=== PATIENT | male | born 1985 | race Caucasian/White ===

== ENCOUNTER 2024-10-27 07:32 | Emergency (ER) | payer OTHER, SELFPAY ==
--- OUTSIDE RECORDS SUMMARY | 2024-10-27 08:26 | XMS_ITS | Clinical Summary ---
Author Organization [facility] Address [address] [place] [address] Care Team Providers Care Produce Manager Name Role Phone Tate Roth MD Primary Care Provider Allergies No known active allergies Medications ARIPiprazole (ABILIFY) 2 mg tablet Take 2 Tablets by mouth every morning (before breakfast). 03/16/2024 Active multivitamin (MULTIPLE VITAMINS ORAL) Take by mouth 1 (one) time each day. Active Active Problems Problem Noted Date Diagnosed Date Bipolar disorder 01/22/2018 ETOH abuse 09/13/2015 Major depressive disorder, recurrent episode, mi ld 09/13/2015 Opiate abuse, episodic 09/13/2015 Cocaine abuse 02/03/2015 Tattoo of skin 05/16/2014 Major depression in remission 01/03/2014 Immunizations Name Administration Dates Next Due Influenza trivalent, 0.5mL, preservative free (Fluarix; FluLaval; Fluzone) ages 6mo and older (Afluria) 3 years and older 07/12/2016,08/26/2013 Tdap Tetanus diptheria acell ular pertussis (Boostrix; Adacel) 7yo and older 05/16/2014 Surgical History Surgery Date Site/Laterality Comments OTHER SURGICAL HISTORY PROCEDURE: DENIES PREVIOUS SURGERY Medical History Medical History Date Comments Tobacco abuse 05/24/2013 DX:Tobacco abuse Major depression in remissio n ([facility]) 01/03/2014 DX:Major depression in remis astrid ([facility]) Tattoo of skin 05/16/2014 DX:Tattoo of ski n Cocaine abuse ([facility]/H[facility]) 02/03/2015 DX:Cocai ne abuse (HCC) Encounter for monitoring Sub oxone maintenance therapy 09/13/2015 DX:Encounter for monitoring Suboxone maintenance therapy Major depressive disorder, r ecurrent episode, mild (CMS/HCC) 09/13/2015 DX:Major depressive disorder , recurrent episode, mild (HCC) ETOH abuse 09/13/2015 DX:ETOH abuse Opiate abuse, episodic (CMS/HCC) 09/13/2015 DX:Opiate abuse, episodic (HCC) Family History Medical History Relation Name Comments Other: adopted Father Diabetes Maternal Grandfather Other: healthy Mother Other: 12 sister Sister Relation Name Status Comments Father Alive healthy Maternal Grandfather Mother Alive healthy Sister Alive Social History Tobacco Use Types Packs/Day Years Used Date Smoking Tobacco: Every Day Cigarettes 0.7 15.7 Started: 09/08/1997; Last attempted to quit: 06/07/2013 Smokeless Tobacco: Never Alcohol Use Standard Drinks/Week Comments Yes 0 (1 standard drink = 0.6 oz pur e alcohol) Sex and Gender Information Value Date Recorded Sex Assigned at Not on file Legal Sex Male 7:45 PM EDT Gender Identity Not on file Sexual Orientation Not on file Obstetrics History Last Filed Vital Signs Vital Sign Reading Time Taken Comments Blood Pressure 118/78 03/26/2024 9:54 AM EDT Pulse 84 03/26/2024 9:54 AM EDT Temperature - - Respiratory Rate - - Oxygen Saturation - - Inhaled Oxygen Concentration - - Weight 99.3 kg (219 lb) 03/26/2024 9:54 AM EDT Height 185.9 cm (6' 1.2 ) 03/26/2024 9:54 AM EDT Body Mass Index 28.74 03/26/2024 9:54 AM EDT Plan of Treatment Upcoming Encounters Date Type Department Care Team (Late st Contact Info) Description 12/30/2024 11:00 AM EDT Office Visit Adult Medicine [facility] [address] [place] [address] Tate Roth MD [address] [place] [address] Health Maintenance Due Date Last Done Comments Hepatitis A Vaccines (1 of 2 - Risk 2-dose series) 2004 Hepatitis B Vaccines (1 of 3 - 19+ 3-dose series) 2004 Pneumococcal Vaccine: Pediatrics (0 to 5 Years) and At-Risk Patients (6 to 64 Years) (1 of 2 - PCV) 2004 Depression Screening 02/26/2020 Social Influencers of Health Screening 02/26/2020 COVID-19 Vaccine (3 - 2023-2 5 season) 2024 01/20/2021, 12/30/2020 Influenza Vaccine (#1) 2024 6, 08/26/2013 DTaP,Tdap,and Td Vaccines (2 - Td or Tdap) 05/16/2024 05/16/2014 Cholesterol Screening (Lipid Panel) 03/26/2029 03/26/2024, 03/26/2024 HIV Screening Completed 07/06/2014 Hepatitis C Screening Completed 07/06/2014 HIB Vaccines Aged Out No longer eligi ble based on patient's age to complete this topic HPV Vaccines Aged Out No longer eligi ble based on patient's age to complete this topic IPV Vaccines Aged Out No longer eligi ble based on patient's age to complete this topic MMR Vaccines Aged Out No longer eligi ble based on patient's age to complete this topic Meningococcal ACWY Vaccine Aged Out N o longer eligible based on patient's age to complete this topic Meningococcal B Vacine Aged Out No lo nger eligible based on patient's age to complete this topic RSV Immunization Patients Under 20 months Aged Out No longer eligible b ased on patient's age to complete this topic Varicella Vaccines Aged Out No longer eligible based on patient's age to complete this topic Procedures Procedure Name Priority Date/Time Associated Diagnosis Comments LIPID PANEL Routine 03/26/2024 HEPATITIS C SCREENING Routine 07/06/2014 HIV SCREENING Routine 07/06/2014 from Last 3 Months or Most Recently Relevant to Health Maintenance Results * (ABNORMAL) Lipid panel (03/26/2024) LDL/HDL Ratio 4 0 - 4 Triglycerides 195(A) 0 - 150 mg/dL Cholesterol 212(A) 0 - 200 mg/dL HDL 53 >=40 mg/dL LDL Cholesterol 120(A) 0 - 100 mg/dL Blood Venous blood specimen / Unknown Historical Provider LAB BLOOD ORDERABLES Ruby l Result * HIV Screening (07/06/2014) HIV Screening abstracted Historical Provider HEALTH MAINTENANCE Final Result * Hepatitis C Screening (07/06/2014) Hepatitis C Screening abstracted Historical Provider HEALTH MAINTENANCE Final Result from Last 3 Months or Most Recently Relevant to Health Maintenance Care Teams Produce Manager Relationship Specialty Start Date End Date Tate Roth MD [address] [place] [address] PCP - General 03/23/24
== END 2024-10-27 08:33 | disposition left against medical advice (07) ==
LOC: HO.ED 08:23
PROVIDERS: Emergency Provider Emergency Medicine
DX: H57.11 Ocular pain, right eye (principal)

== ENCOUNTER 2025-06-28 14:59 | Emergency (ER) | payer OTHER, SELFPAY ==
--- OUTSIDE RECORDS SUMMARY | 2025-06-28 16:56 | XMS_ITS | Encounter Summary ---
Author Organization [facility] Address [address] [place] [address] Care Team Providers Care Site Safety Representative Name Role Phone Tate Roth MD Primary Care Provider Reason for Visit * Reason Comments Finger Laceration Shut right middle fi nger in the car door Encounter Details Date Type Department Care Team (Late st Contact Info) Description 06/28/2025 4:56 PM EDT - 06/28/2025 5:58 PM EDT Emergency [facility] Emergency [address] [place] [id number] Tyree Tran MD [address] [place] [address] Laceration of right middle finger without foreign body with damage to nail, initial encounter (Primary Dx); Open nondisplaced fracture of distal phalanx of right middle finger, initial encounter Discharge Disposition: Home or Self Care Social History Tobacco Use Types Packs/Day Years Used Date Smoking Tobacco: Former Cigarettes 0.7 15.7 0 09/08/1997 - 06/07/2013 Smokeless Tobacco: Never Alcohol Use Standard Drinks/Week Comments Yes 0 (1 standard drink = 0.6 oz pur e alcohol) Sex and Gender Information Value Date Recorded Sex Assigned at Not on file Legal Sex Male 7:45 PM EDT Gender Identity Not on file Sexual Orientation Not on file documented as of this encounter Last Filed Vital Signs Vital Sign Reading Time Taken Comments Blood Pressure 113/84 06/28/2025 3:47 PM EDT Pulse 82 06/28/2025 3:47 PM EDT Temperature 36.3 C (97.4 F) 06/28/2025 3:47 PM EDT Respiratory Rate 17 06/28/2025 3:47 PM EDT Oxygen Saturation 97% 06/28/2025 3:47 PM EDT Inhaled Oxygen Concentration - - Weight 97.5 kg (215 lb) 06/28/2025 3:47 PM EDT Height 185.4 cm (6' 1 ) 06/28/2025 3:47 PM EDT Body Mass Index 28.37 06/28/2025 3:47 PM EDT documented in this encounter Functional Status * Calculated C-SSRS Risk Score (Lifetime/Recent) Answer Date of Assessment Author No Risk Indicated 06/28/2025 3:31 PM EDT Shira Lynn RN * [place] Suicide Severity Rating Scale (Screener/Recent Self-Report) Question Answer Date of Assessment Author 1. Wish to be (Past 1 Month) No 3:31 PM EDT Shira Suero RN 2. Non-Specific Active Suici gurvinder Thoughts (Past 1 Month) No 06/28/2025 3:31 PM EDT Clarence Suero RN 6. Suicidal Behavior (Lifetime) No 3:31 PM EDT Shira Suero RN documented as of this encounter Discharge Instructions * Discharge Instructions* Tyree Tran MD - 06/28/2025 5:47 PM EDT local care as advised Wear the splint for support Sutures removal in 2 weeks See orthopedics within a week Report to the ER/PCP/orthopedics if any signs of infection * Attachments The following attachments cannot be sent through Care Everywhere. * Hand Laceration: Stitches (Kiswahili) * Splint or Immobilizer Use (Kiswahili) documented in this encounter Medications at Time of Discharge amoxicillin-clav ulanate (AUGMENTIN) 875-125 mg per tablet Take 1 tablet by mouth 2 (two) times a day for 10 days. 20 tablet 06/28/2025 07/08/2025 buprenorphine-na loxone (SUBOXONE) 4-1 mg per SL film DISSOLVE 1 AND 1/2 FILMS UNDER TONGUE EVERY DAY 03/30/2025 ibuprofen (ADVIL,MOTRIN) 600 mg tablet Take 1 tablet (600 mg total) by mouth every 6 (six) hours if needed for moderate pain for up to 30 doses. 30 tablet 06/28/2025 lamoTRIgine (LaMICtal) 25 mg tablet 2 tablets (50 mg total). 12/28/2024 multivitamin (MULTIPLE VITAMINS ORAL) Take by mouth 1 (one) time each day. sertraline (ZOLOFT) 100 mg tablet Take 1 tablet (100 mg total) by mouth 1 (one) time each day. 03/14/2025 documented as of this encounter Ordered Prescriptions Prescription Sig Dispense Quantity Refills Last Filled Start Date End Date ibuprofen (ADVIL,MOTRIN) 600 mg tablet Take 1 tablet (600 mg total) by mouth every 6 (six) hours if needed for moderate pain for up to 30 doses. 30 tablet 06/28/2025 amoxicillin-clavul anate (AUGMENTIN) 875-125 mg per tablet Take 1 tablet by mouth 2 (two) times a day for 10 days. 20 tablet 06/28/2025 documented in this encounter Discharge Disposition Disposition Code Departure Means Destination Comment s Home or Self Care documented in this encounter Progress Notes * Shira Suero RN - 06/28/2025 3:30 PM EDT Patient arrives after slamming right middle finger in the door of car. Patient has LAC and bleedingfrom the area. * Tyree Tran MD - 06/28/2025 3:29 PM EDTAssociated Order(s): Laceration Repair HPI Chief Complaint Patient presents with Finger Laceration Shut right middle finger in the car door Laceration crush injury to the right middle finger apparently patient got his finger in the door ofhis truck while closing it comes in with crush injury to the right middle finger patient up to datein tetanus shot [place] Coma Scale Score: 15 Patient History Medical History[1] Surgical History[2] Family History[3] Social History Tobacco Use Smoking status: Former Current packs/day: 0.00 Average packs/day: 0.7 packs/day for 15.7 years (11.8 ttl pk-yrs) Types: Cigarettes Start date: 09/08/1997 Quit date: 06/07/2013 Years since quittin.0 Smokeless tobacco: Never Substance Use Topics Alcohol use: Yes Drug use: Not Currently Review of Systems Review of Systems All other systems reviewed and are negative. Physical Exam ED Triage Vitals [06/28/25 1547] Temp Heart Rate Resp BP 36.3 ??C (97.4 ??F) 82 17 113/84 SpO2 Temp Source Heart Rate Source Patient Position 97 % Oral Brachial Sitting BP Location FiO2 (%) Left arm -- Physical Exam Vitals and nursing note reviewed. Appearance: Alert. Oriented X3. No acute distress. HEENT: ATNC, pharynx normal. oral mucosa moist Neck: Normal inspection. Neck supple. CVS: Normal heart rate and rhythm. No murmur/rub/gallop ,pulses normal. Respiratory: No respiratory distress. Abdomen: Soft and nontender.kin: Skin warm and dry. Normal skin color. Normal skin turgor. Extremities: No lower extremity edema. No calf tenderness Right hand middle finger with flap laceration to the distal phalanx Neuro: Oriented X 3. ED Course & MDM Clinical Impressions as of 06/28/25 1752 Laceration of right middle finger without foreign body with damage to nail, initial encounter Open nondisplaced fracture of distal phalanx of right middle finger, initial encounter Medical Decision Making Patient with right middle finger distal phalanx fracture with minimal displacement with flap laceration neurovascular intact wound was cleaned thoroughly and sutures was applied with fair approximation holes were drilled on the nail. To drain the subungual hematoma finger splint was applied patientaware that patient has a fracture and it may get infected but for now wound looks healthy which wascleaned and antibiotic were given to the patient patient will be following with orthopedics within a week advised to come back to the ER if he notice any signs of infection up-to-date on tetanus shot Laceration Repair Date/Time: 06/28/2025 5:54 PM Performed by: Tyree Tran MD Authorized by: Tyree Tran MD Consent: Consent obtained: Verbal Risks discussed: Infection Alternatives discussed: No treatment [place] protocol: Patient identity confirmed: Verbally with patient Anesthesia: Anesthesia method: Local infiltration Local anesthetic: Lidocaine 1% w/o epi Laceration details: Location: Finger Finger location: R long finger Length (cm): 4 Depth (mm): 5 Pre-procedure details: Preparation: Patient was prepped and draped in usual sterile fashion Exploration: Imaging obtained: x-ray Wound exploration: wound explored through full range of motion Contaminated: no Treatment: Area cleansed with: Povidone-iodine Amount of cleaning: Extensive Irrigation solution: Sterile saline Visualized foreign bodies/material removed: no Debridement: None Undermining: None Scar revision: no Layers/structures repaired: Deep subcutaneous Skin repair: Repair method: Sutures Suture size: 5-0 Suture material: Nylon Suture technique: Simple interrupted Number of sutures: 13 Approximation: Approximation: Close Repair type: Repair type: Intermediate Post-procedure details: Procedure completion: Tolerated well, no immediate complications [1] Past Medical History: Diagnosis Date Cocaine abuse ([facility] V24, [facility] V28) 02/03/2015 DX:Cocaine abuse (HCC) Encounter for monitoring Suboxone maintenance therapy 09/13/2015 DX:Encounter for monitoring Suboxone maintenance therapy ETOH abuse 09/13/2015 DX:ETOH abuse Major depression in remission ([facility] V24) 01/03/2014 DX:Major depression in remission (HCC) Major depressive disorder, recurrent episode, mild ([facility] V24) 09/13/2015 DX:Major depressive disorder, recurrent episode, mild (HCC) Opiate abuse, episodic ([facility] V24, [facility] V28) 09/13/2015 DX:Opiate abuse, episodic (HCC) Tattoo of skin 05/16/2014 DX:Tattoo of skin Tobacco abuse 05/24/2013 DX:Tobacco abuse [2] Past Surgical History: Procedure Laterality Date OTHER SURGICAL HISTORY PROCEDURE: DENIES PREVIOUS SURGERY [3] Family History Problem Relation Name Age of Onset Diabetes Maternal Grandfather Other (Other: healthy) Mother Other (Other: adopted) Father Other (Other: 1/2 sister) Sister Tyree Tran MD 06/28/25 [id number] documented in this encounter Plan of Treatment Upcoming Encounters Date Type Department Care Team (Late st Contact Info) Description 07/12/2025 1:00 PM EST Evaluation Outpatient Rehabilitation [address] [phone] Brent Chadwick, PT 07/20/2025 11:00 AM EST Office Visit Orthopedic Surgery - [place] [address] [facility] [address] [place] [phone] El Jurado MD [address] [place] [phone] documented as of this encounter Procedures Procedure Name Priority Date/Time Associated Diagnosis Comments HC REPAIR WOUND LEVEL 1 Routine 06/28/2025 5:54 PM EDT DE REPAIR INTERMEDIATE WOUNDS NECK/HANDS/FEET/EXT GENITALIA 2.6 - 7.5 CM Routine 06/28/2025 5:54 PM EDT XR FINGERS 2+ VIEWS RIGHT STAT 06/28/2025 4:02 PM EDT documented in this encounter Results * DE REPAIR INTERMEDIATE WOUNDS NECK/HANDS/FEET/EXT GENITALIA 2.6 - 7.5 CM, HC REPAIR WOUND LEVEL 1 (06/28/2025 5:54 PM EDT) Tyree Casillas MD - 06/28/2025 5:54 PM EDT Tyree Tran MD 06/28/2025 5:58 PM Laceration Repair Date/Time: 06/28/2025 5:54 PM Performed by: Tyree Tran MD Authorized by: Tyree Tran MD Consent: Consent obtained: Verbal Risks discussed: Infection Alternatives discussed: No treatment [place] protocol: Patient identity confirmed: Verbally with patient Anesthesia: Anesthesia method: Local infiltration Local anesthetic: Lidocaine 1% w/o epi Laceration details: Location: Finger Finger location: R long finger Length (cm): 4 Depth (mm): 5 Pre-procedure details: Preparation: Patient was prepped and draped in usual sterile fashion Exploration: Imaging obtained: x-ray Wound exploration: wound explored through full range of motion Contaminated: no Treatment: Area cleansed with: Povidone-iodine Amount of cleaning: Extensive Irrigation solution: Sterile saline Visualized foreign bodies/material removed: no Debridement: None Undermining: None Scar revision: no Layers/structures repaired: Deep subcutaneous Skin repair: Repair method: Sutures Suture size: 5-0 Suture material: Nylon Suture technique: Simple interrupted Number of sutures: 13 Approximation: Approximation: Close Repair type: Repair type: Intermediate Post-procedure details: Procedure completion: Tolerated well, no immediate complications Tyree Tran MD IN CLINIC/BEDSIDE ORDERAB LES Final Result * XR Fingers 2+ Views Right (06/28/2025 4:02 PM EDT) Anatomical Region Laterality Modality Upper Extremities, Fingers Right Radio graphic Imaging 06/28/2025 4:21 PM EDT Impressions 06/28/2025 4:22 PM EDT Nondisplaced right 3rd distal phalanx fracture. -------- FINAL REPORT -------- Dictated By: Joseph Kwong Dictated Date: 06/28/2025 16:21 ET Assigned Physician: Joseph Kwong Reviewed and Electronically Signed By: Joseph Kwong Signed Date: 06/28/2025 16:22 ET Workstation ID: [id number] Transcribed By: Self Edit Transcribed Date: 06/28/2025 16:21 ET Narrative 06/28/2025 4:22 PM EDT INDICATION: Right 3rd finger crushing injury with pain FINDINGS: 3 views of the right 3rd finger were obtained. No prior studies available for comparison. Bones: Complete fracture noted of the distal aspect of the right 3rd distal phalanx without significant displacement. Soft tissues: Soft tissue laceration suspected. No radiopaque foreign body. Procedure Note Joseph Kwong MD - 06/28/2025 INDICATION: Right 3rd finger crushing injury with pain FINDINGS: 3 views of the right 3rd finger were obtained. No prior studiesavailable for comparison. Bones: Complete fracture noted of the distal aspect of the right 3rddistal phalanx without significant displacement. Soft tissues: Soft tissue laceration suspected. No radiopaque foreignbody. IMPRESSION: Nondisplaced right 3rd distal phalanx fracture. -------- FINAL REPORT -------- Dictated By: Joseph Kwong Dictated Date: 06/28/2025 16:21 ET Assigned Physician: Joseph Kwong Reviewed and Electronically Signed By: Joseph Kwong Signed Date: 06/28/2025 16:22 ET Workstation ID: [id number] Transcribed By: Self Edit Transcribed Date: 06/28/2025 16:21 ET Belinda ROMANO IMG XR PROCEDURES Final Result documented in this encounter Visit Diagnoses Diagnosis Laceration of right middle finger without foreign body with damage to nail, initial encounter- Primary Open nondisplaced fracture of distal phalanx of right middle finger, initial encounter documented in this encounter Administered Medications Inactive Administered Medications - up to 3 most recent administrations Medication Order MAR Action Action Date Dose Rate Site amoxicillin-clavulanate (AUGMENTIN) 875-125 mg per tablet 1 tablet 1 tablet, oral, Once, On Fri06/28/25 at 1736, For 1 dose, Indication: Prophylaxis-Medical Given 06/28/2025 5:48 PM EDT 1 tablet lidocaine (PF) (XYLOCAINE-MPF) 1 % injection 5 mL 5 mL, infiltration, Once, On Fri06/28/25 at 1655, For 1 dose Given 06/28/2025 5:00 PM EDT 5 mL documented in this encounter Active and Recently Administered Medications Times are shown in EDT. Scheduled Medication Order 06/26/2025 06/27/2025 06/28/2025 amoxicillin-clavulanate (AUGMENTIN) 875-125 mg per tablet 1 tablet (COMPLETED) 1 tablet, oral, Once, On Fri06/28/25 at 1736, For 1 dose, Indication: Prophylaxis-Medical 1747 (Given - Provid er: Junior Main RN) bacitracin ointment packet 1 Application, Topical, Once, On Fri06/28/25 at 1736, For 1 dose, Apply to wpound 1736 (Canceled Entry - Provider: Automatic Discharge Provider - Comment: Automatically canceled at discontinue of medication order) lidocaine (PF) (XYLOCAINE-MPF) 1 % injection 5 mL (COMPLETED) 5 mL, infiltration, Once, On Fri06/28/25 at 1655, For 1 dose 1700 (Given - Provid er: Junior Main RN) documented in this encounter Orders Medications Ordered That Barrett ht Not Have Been Administered Count Last Ordered Date First Ordered Date bacitracin ointment packet 1 06/28/2025 documented in this encounter Care Teams Site Safety Representative Relationship Specialty Start Date End Date Tate Roth MD [address] [place] [address] PCP - General 03/23/24 documented as of this encounter
--- OUTSIDE RECORDS SUMMARY | 2025-06-28 20:19 | XMS_ITS | Clinical Summary ---
Author Organization Patient Business Ser [facility] Address [address] [place] [address] Care Team Providers Care Customer Order Clerk Name Role Phone Tate Roth MD Primary Care Provider Allergies No known active allergies Medications multivitamin (MULTIPLE VITAMINS ORAL) Take by mouth 1 (one) time each day. Active lamoTRIgine (LaMICtal) 25 mg tablet 2 tablets (50 mg total). 12/28/2024 Active sertraline (ZOLOFT) 100 mg tablet Take 1 tablet (100 mg total) by mouth 1 (one) time each day. 03/14/2025 Active buprenorphine-n aloxone (SUBOXONE) 4-1 mg per SL film DISSOLVE 1 AND 1/2 FILMS UNDER TONGUE EVERY DAY 03/30/2025 Active amoxicillin-cla vulanate (AUGMENTIN) 875-125 mg per tablet Take 1 tablet by mouth 2 (two) times a day for 10 days. 20 tablet 06/28/2025 07/08/20 25 Active ibuprofen (ADVIL,MOTRIN) 600 mg tablet Take 1 tablet (600 mg total) by mouth every 6 (six) hours if needed for moderate pain for up to 30 doses. 30 tablet 06/28/2025 Active Active Problems Problem Noted Date Diagnosed Date Anxiety 06/14/2025 Complex tear of medial menis cus of left knee as current injury 05/11/2025 Bipolar disorder ([facility] V24, [facility] V28) 01/06 ETOH abuse 09/13/2015 Opiate abuse, episodic ([facility] V24, [facility] V28 ) 09/13/2015 Cocaine abuse ([facility] V24, [facility] V28) 015 Tattoo of skin 05/16/2014 Resolved Problems Problem Noted Date Diagnosed Date Resolved Date Major depressive disorder, r ecurrent episode, mild ([facility] V24) 09/13/2015 12/30/2024 Major depression in remission ([facility] V24) 01/03/2014 12/30/2024 Encounters Date Type Department Care Team Description 06/28/2025 4:56 PM EDT - 06/28/2025 5:58 PM EDT Emergency [facility] Emergency [address] [place] [phone] Tyree Tran MD Laceration of right middle finger without foreign body with damage to nail, initial encounter (Primary Dx); Open nondisplaced fracture of distal phalanx of right middle finger, initial encounter Discharge Disposition: Home or Self Care 06/14/2025 12:30 PM EDT Consult Adult Medicine [address] [phone] Tate Roth MD Preop examination (Primary Dx); Anxiety; Bipolar affective disorder, remission status unspecified ([facility] V24, [facility] V28) 06/14/2025 Results Follow-Up Adult Medicine [address] [phone] Tate Roth MD 06/14/2025 Telephone Orthopedic Surgery [facility] [address] [phone] Alyce Head [place] 06/01/2025 Telephone Orthopedic Surgery [facility] [address] [phone] Alyce Head [place] 05/26/2025 Telephone Orthopedic Surgery [facility] [address] [phone] lAyce Head [place] 05/19/2025 Telephone Orthopedic Surgery [facility] [address] [phone] Fab, Julie Clara 05/11/2025 2:30 PM EDT Office Visit Orthopedic Surgery - [place] [address] [place] [address] [address] [place] [address] El Jurado MD Complex tear of medial meniscus of left knee as current injury, initial encounter 04/01/2025 8:30 AM EDT Consult Orthopedics [address] [phone] Joey Pablo PA Complex tear of medial meniscus of left knee as current injury, initial encounter (Primary Dx) from Last 3 Months Immunizations Immunization Administration Dates Next Due Influenza trivalent, 0.5mL, preservative free (Fluarix; FluLaval; Fluzone) ages 6mo and older (Afluria) 3 years and older 07/12/2016,08/26/2013 Tdap Tetanus diptheria acell ular pertussis (Boostrix; Adacel) 7yo and older 05/16/2014 Surgical History Surgery Date Site/Laterality Comments OTHER SURGICAL HISTORY PROCEDURE: DENIES PREVIOUS SURGERY Medical History Medical History Date Comments Tobacco abuse 05/24/2013 DX:Tobacco abuse Major depression in remissio n ([facility] V24) 01/03/2014 DX:Major depression in remis astrid ([facility]) Tattoo of skin 05/16/2014 DX:Tattoo of ski n Cocaine abuse ([facility] V24, [facility] V28) 02/03/2015 DX:Cocaine abuse ([facility]) Encounter for monitoring Sub oxone maintenance therapy 09/13/2015 DX:Encounter for monitoring Suboxone maintenance therapy Major depressive disorder, r ecurrent episode, mild ([facility] V24) 09/13/2015 DX:Major depressive disord er, recurrent episode, mild ([facility]) ETOH abuse 09/13/2015 DX:ETOH abuse Opiate abuse, episodic ([facility] V24, [facility] V28) 09/13/2015 DX:Opiate abuse, episodic ([facility]) Family History Medical History Relation Name Comments Other: adopted Father Diabetes Maternal Grandfather Other: healthy Mother Other: 1/2 sister Sister Relation Name Status Comments Father Alive healthy Maternal Grandfather Mother Alive healthy Sister Alive Social History Tobacco Use Types Packs/Day Years Used Date Smoking Tobacco: Former Cigarettes 0.7 15.7 0 09/08/1997 - 06/07/2013 Smokeless Tobacco: Never Tobacco Cessation:Counseling Given: Not Answered Alcohol Use Standard Drinks/Week Comments Yes 0 [...] Mass Index 28.37 06/28/2025 3:47 PM EDT Plan of Treatment Upcoming Encounters Date Type Department Care Team (Late st Contact Info) Description 07/12/2025 1:00 PM EST Evaluation Outpatient Rehabilitation [address] [phone] Chadwick Kennedy, PT 07/20/2025 11:00 AM EST Office Visit Orthopedic Surgery - [address] [phone] El Jurado MD [address] [place] [phone] Health Maintenance Due Date Last Done Comments HPV Vaccines (1 - 3-dose SCD M series) 2012 Depression Screening 09/08/2024 COVID-19 Vaccine (3 - 2024-2 6 season) 2025 01/20/2021, 12/30/2020 Influenza Vaccine (#1) 2025 6, 08/26/2013 Hepatitis B Vaccines (1 of 3 - 19+ 3-dose series) 09/08/2025 Postponed from 2004 (Patient Refused) Social Influencers of Health Screening 12/30/2025 12/30/2024 Cholesterol Screening (Lipid Panel) 03/08/2030 03/08/2025, 03/26/2024, 03/26/2024 DTaP,Tdap,and Td Vaccines (3 - Td or Tdap) 01/26/2035 01/26/2025, 05/16/2014 RSV Immunization Adult Patients (1 - 1-dose 75+ series) 2060 HIV Screening Completed 07/06/2014 Hepatitis C Screening Completed 07/06/2014 HIB Vaccines Aged Out No longer eligi ble based on patient's age to complete this topic Hepatitis A Vaccines Discontinued IPV Vaccines Aged Out No longer eligi ble based on patient's age to complete this topic MMR Vaccines Aged Out No longer eligi ble based on patient's age to complete this topic Meningococcal ACWY Vaccine Aged Out N o longer eligible based on patient's age to complete this topic Meningococcal B Vaccine Aged Out No l onger eligible based on patient's age to complete this topic Pneumococcal Vaccine: Pediatrics (0 to 5 Years) and At-Risk Patients (6 to 49 Years) Aged Out No longer eligible b ased [...] LEVEL 1 Routine 06/28/2025 5:54 PM EDT PA REPAIR INTERMEDIATE WOUNDS NECK/HANDS/FEET/EXT GENITALIA 2.6 - 7.5 CM Routine 06/28/2025 5:54 PM EDT XR FINGERS 2+ VIEWS RIGHT STAT 06/28/2025 4:02 PM EDT ECG 12-LEAD Routine 06/15/2025 10:23 AM EDT Preop examination CBC WITH AUTO DIFFERENTIAL Routine 06/14/2025 1:10 PM EDT Abnormal CBC CBC AND DIFFERENTIAL Routine 06/14/2025 1:10 PM EDT Abnormal CBC LIPID PANEL WITH REFLEX TO DIRECT LDL Routine 03/08/2025 4:06 PM EDT Annual physical exam HEPATITIS C SCREENING Routine 07/06/2014 HIV SCREENING Routine 07/06/2014 from Last 3 Months or Most Recently Relevant to Health Maintenance Results * PA REPAIR INTERMEDIATE WOUNDS NECK/HANDS/FEET/EXT GENITALIA 2.6 - 7.5 CM, HC REPAIR WOUND LEVEL 1 (06/28/2025 5:54 PM EDT) Tyree Casillas MD - 06/28/2025 5:54 PM EDT Tyree Tran MD 06/28/2025 5:58 PM Laceration Repair Date/Time: 06/28/2025 5:54 PM Performed by: Tyree Tran MD Authorized by: Tyree Tran MD Consent: Consent obtained: Verbal Risks discussed: Infection Alternatives discussed: No treatment Roby protocol: Patient identity confirmed: Verbally with patient [...] Procedure completion: Tolerated well, no immediate complications us Tyree Tran MD IN CLINIC/BEDSIDE ORDERAB LES [...] Signed Date: 06/28/2025 16:22 ET Workstation ID: [id number] Transcribed By: Self Edit Transcribed Date: 06/28/2025 [...] Signed Date: 06/28/2025 16:22 ET Workstation ID: [id number] Transcribed By: Self Edit Transcribed Date: 06/28/2025 16:21 ET Belinda ROMANO IMG XR PROCEDURES Final Result * ECG 12 lead (06/15/2025 10:23 AM EDT) us Tate Roth MD ECG ORDERABLES Final Resul t * (ABNORMAL) CBC auto differential (06/14/2025 1:10 PM EDT) WBC 6.7 4.8 - 10.8 K/mcL LAB HEMETOLOGY METHOD 06/14/2025 4:48 PM EDT [facility] RBC 4.70 4.50 - 5.50 M/mcL LAB HEMETOLOGY METHOD 06/14/2025 4:48 PM EDT [facility] Hemoglobin 14.2 13.5 - 17.5 g/dL LAB HEM[facility]OLOGY [facility] Hematocrit 43.1 42.0 - 54.0 % LAB HEMETOLOGY METHOD 06/14/2025 4:48 PM EDT [facility] MCV 91.9 79.0 - 98.0 FL LAB HEMETOLOGY METHOD 06/14[facility]2025 4[facility] MCH 30.3 27.0 - 32.0 pcg LAB HEMETOLOGY METHOD 06/14[facility]2025 4[facility] MCHC 32.9 32.0 - 37.0 g/dL LAB HEMETOLOGY METHOD 06/14/2025 4:48 PM EDT [facility] RDW 12.6 11.0 - 15.0 % LAB HEMETOLOGY METHOD 06/14/2025 4:[facility] Platelets 178 130 - 400 K/mcL LAB HEMETOLOGY METHOD 06/14[facility]2025 4[facility] MPV 9.6 7.0 - 11.0 FL LAB HEMETOLOGY METHOD 06/14/2025 4:48 PM EDT [facility] NRBC 0.0 <1.0 % LAB HEMETOLOGY METHOD 06/14/2025 4:48 PM EDT [facility] NRBC Absolute 0.00 <0.10 K/mcL LAB HEMETOLOGY METHOD 06/14/2025 4:48 PM EDT [facility] Neutrophils Relative 68.0 % LAB HEMETOLOGY METHOD 06/14/2025 4:48 PM EDT [facility] Lymphocytes Relative 20.7 % LAB HEMETOLOGY METHOD 06/14/2025 4:48 PM EDT [facility] Monocytes Relative 8.7 % LAB HEMETOLOGY METHOD [facility]/14[facility]2025 [facility] Eosinophils Relative 1.7 % LAB HEMETOLOGY METHOD 06/14/2025 4:48 PM [facility] Basophils Relative 0.3 % LAB HEMETOLOGY METHOD 06/14[facility]2025 4[facility] Immature Granulocytes Relative 0.6 % LAB HEMETOLOGY METHOD 06/14/2025 4:48 PM [facility] Neutrophils Absolute 4.53 1.50 - 7.00 K/mcL LAB HEMETOLOGY METHOD 06/14/2025 4:48 PM [facility] Lymphocytes Absolute 1.38 1.00 - 5.00 K/mcL LAB HEMETOLOGY METHOD 06/14/2025 4:48 PM EDT [facility] Monocytes Absolute 0.58 0.20 - 1.00 K/mcL LAB HEMETOLOGY METHOD 06/14/2025 4:48 PM EDT [facility] Eosinophils Absolute 0.11 0.00 - 0.50 K/mcL LAB HEMETOLOGY METHOD 06/14[facility]2025 4[facility] Basophils Absolute 0.02 0.00 - 0.20 K/mcL LAB HEMETOLOGY METHOD 06/14/2025 4:48 PM EDT [facility] Immature Granulocytes Absolute 0.04(H) 0.00 - 0.03 K/mcL LAB HEMETOLOGY METHOD 06/14/2025 4:48 PM EDT [facility] Blood Venous blood specimen / Unknown Venipuncture / Unknown 06/14/2025 1:10 PM EDT 06/14/2025 1:10 PM EDT us Tate Roth MD LAB BLOOD ORDERABLES Final Result [facility] [address] [place] [address], [place] [phone] * Lipid panel with reflex to direct LDL (03/08/2025 4:06 PM EDT) Cholesterol 147 0 - 200 mg/dL LAB CHEMISTRY METHOD 03/08[facility]2025 6[facility] Triglycerides 92 0 - 150 mg/dL LAB CHEMISTRY METHOD 03/08/2025 6:40 PM EDT [facility] HDL 58 >=40 mg/dL LAB CHEMISTRY METHOD 03/08/2025 6:40 PM EDT [facility] LDL Calculated 71 0 - 100 mg/dL LAB CHEMISTRY METHOD 03/08/2025 6:40 PM [facility] VLDL Cholesterol Abundio 18.4 mg/dL LAB CHEMISTRY METHOD 03/08/2025 6:40 PM T [facility] Non HDL Chol. (LDL+VLDL) 89 <145 mg/dL LAB CHEMISTRY METHOD 03/08/2025 6:40 PM EDT [facility] Chol/HDL Ratio 2.5 0.0 - 4.4 LAB CHEMISTRY METHOD 03/08/2025 6:40 PM [facility] Blood Venous blood specimen / Unknown Venipuncture / Unknown 03/08/2025 4:06 PM EDT 03/08/2025 4:06 PM EDT us Tate Roth MD LAB BLOOD ORDERABLES Final Result [facility] [address] [place] [address], [place] [phone] * HIV Screening (07/06/2014) HIV Screening abstracted Historical Provider HEALTH MAINTENANCE Final Result * Hepatitis C Screening (07/06/2014) Hepatitis C Screening abstracted Historical Provider HEALTH MAINTENANCE Final Result from Last 3 Months or Most Recently Relevant to Health Maintenance Insurance [employer] Care Teams Customer Order Clerk Relationship Specialty Start Date End Date Tate Roth MD [address] [place] [id number] PCP - General 03/23/24
--- OUTSIDE RECORDS SUMMARY | 2025-06-28 20:19 | XMS_ITS | Encounter Summary ---
Author Organization [facility] Address [address] [place] [address] Care Team Providers Care Traveling Representative Name Role Phone Tate Roth MD Primary Care Provider [phone] Encounter Details Date Type Department Care Team (Late Contact Info) Description 06/14/2025 Results Follow-Up Adult Medicine [address] [phone] Tate Roth MD [address] [place] [address] Social History Tobacco Use Types Packs/Day Years [...] on file documented as of this encounter Plan of Treatment Upcoming Encounters Date Type Department Care Team (Late st Contact Info) Description 07/12/2025 1:00 PM EST Evaluation Outpatient Rehabilitation [address] [phone] Chadwick Kennedy, DULCE 07/20/2025 11:00 AM EST Office Visit Orthopedic Surgery - [place] [address] [place] [address] [address] [place] [phone] El Jurado MD [address] [place] [phone] documented as of this encounter Visit Diagnoses Not on filedocumented in this encounter Care Teams Traveling Representative Relationship Specialty Start Date End Date Tate Roth MD [address] [place] [address] PCP - General 03/23/24 documented as of this encounter
== END 2025-06-28 18:14 | disposition left against medical advice (07) ==
PROVIDERS: Emergency Provider Emergency Medicine
DX: S67.10XA Crushing injury of unspecified finger(s), initial encounter (principal); X58.XXXA Exposure to other specified factors, initial encounter; Y93.9 Activity, unspecified; Y92.9 Unspecified place or not applicable; Y99.9 Unspecified external cause status; Z53.21 Procedure and treatment not carried out due to patient leaving prior to being seen by health care provider